=== PATIENT | male | born 1950 | race Caucasian/White ===

== ENCOUNTER 2023-08-01 06:56 | Day surgery (SDC) | payer OTHER ==
[~2023-08-01] VITALS: Ht 177.8 cm; Wt 89.7 kg
[2023-08-01] VITALS (14 sets, daily range): BP systolic 118–181; BP diastolic 68–107; PULSE 63–78; RESP 12–18; O2SAT 96–98
[2023-08-01] MEDS ORDERED: ALLO100T PO (07:30)
[2023-08-01] MEDS ORDERED: INDO50CA96 PO (07:30)
[2023-08-01] MEDS ORDERED: BENA40TA73 PO (07:30)
[2023-08-01] MEDS ORDERED: SPIR25TA5 PO (07:30)
[2023-08-01] MEDS ORDERED: normal saline 1000ml 1,000 ML IV SCH (07:30)
[2023-08-01] MEDS ORDERED: KETO-96 EACHEYE (07:30)
[2023-08-01 08:04] LABS: BASOPHILS % (AUTO) 0.8 % (0-1); EOSINOPHILS # (AUTO) 0.2 X10'3 (0-0.9); EOSINOPHILS % (AUTO) 3.3 % (0-6); HEMATOCRIT 44.3 % (42.0-52.0); HEMOGLOBIN 15.2 g/dl (14.0-17.9); LYMPHOCYTES # (AUTO) 1.6 X10'3 (1.1-4.8); LYMPHOCYTES % (AUTO) 32.9 % (21-51); MEAN CORPUSCULAR HEMOGLOBIN 34.7 PG (27.0-31.0); MEAN CORPUSCULAR HGB CONC 34.2 g/dL (33.0-36.5); MEAN CORPUSCULAR VOLUME 101.5 FL (78-98); MEAN PLATELET VOLUME 8.7 FL (7.4-10.4); MONOCYTES # (AUTO) 0.3 X10'3 (0-0.9); MONOCYTES % (AUTO) 6.3 % (2-12); NEUTROPHILS # (AUTO) 2.7 X10'3 (1.8-7.7); NEUTROPHILS % (AUTO) 56.7 % (42-75); PLATELET COUNT 170 X10'3 (140-440); RED BLOOD COUNT 4.36 X10'6 (4.70-6.10); RED CELL DISTRIBUTION WIDTH 13.5 % (11.5-14.5); WHITE BLOOD COUNT 4.7 X10'3 (4.5-11.0)
[2023-08-01 08:16] LABS: PROTHROMBIN TIME 10.3 SECONDS (9.0-12.0)
[2023-08-01] MEDS ORDERED: diphenhydrAMINE 50 mg/ml inj ONE (09:19)
[2023-08-01] MEDS ORDERED: morphine 2 MG/ML inj. syringe ONE (09:40)
[2023-08-01] MEDS ORDERED: morphine 4 MG/ML inj SYRINge IV PRN (10:25)
[2023-08-01] MEDS ORDERED: HYDROcodone/acetaminophen 5mg/325mg tablet PO PRN (10:25)
== END 2023-08-01 13:40 | disposition home or self-care (01) ==
LOC: SSTAY O 06:56
PROVIDERS: ATTEND Radiology Vascular & Interventional Radiology
DX: R91.1 Solitary pulmonary nodule (principal); J84.10 Pulmonary fibrosis, unspecified; Z79.899 Other long term (current) drug therapy; Z79.01 Long term (current) use of anticoagulants
CPT/HCPCS: 32408; 36415; 71045; 85025; 85610; J1200; J2270; J7030; 77012; A4615